=== PATIENT | female | born 1970 | race American Indian/Alaskan Native ===

== ENCOUNTER 2017-02-01 11:59 | Inpatient (IN) | payer MEDICAID ==
--- NOTE | 2017-02-01 12:23 | ED PDOC ---
Arrival/HPI - General Chief Complaint: Chest Pain Time Seen by Provider: 02/01/17 12:02 Historian: Patient - History of Present Illness Narrative History of Present Illness (Text): 02/01/17 12:23 A 46 year old female, whose past medical history includes hypertension, hyperlipidemia and recent cholecystectomy on 01/25/17, presents to the emergency department complaining of left sided chest pain for 2 days. Patient describes the pain as a persistent sharp sensation as radiating toward the posterior L shoulder and upper back and is worse on exertion. Patient notes mild shortness of breath but denies any fever, chills, nausea, vomiting, abdominal pain, lower extremity swelling/pain or any other complaints. Time/Duration: Other (2 days) Symptom Course: Unchanged Quality: Other Context: Home Past Medical History - Provider Review Nursing Documentation Reviewed: Yes - Infectious Disease Hx of Infectious Diseases: None - Cardiac Hx Cardiac Disorders: Yes Hx Hypertension: Yes - Pulmonary Hx Respiratory Disorders: No - Neurological Hx Neurological Disorder: No - HEENT Hx HEENT Disorder: No - Renal Hx Renal Disorder: No - Endocrine/Metabolic Hx Endocrine Disorders: No - Hematological/Oncological Hx Blood Disorders: No - Integumentary Hx Dermatological Disorder: No - Musculoskeletal/Rheumatological Hx Musculoskeletal Disorders: No - Gastrointestinal Hx Gastrointestinal Disorders: No - Genitourinary/Gynecological Hx Genitourinary Disorders: No - Psychiatric Hx Psychophysiologic Disorder: No Hx Substance Use: No - Surgical History Hx Cholecystectomy: Yes Hx Hysterectomy: Yes (partial) - Anesthesia Hx Anesthesia: Yes Hx Anesthesia Reactions: No Family/Social History - Physician Review Nursing Documentation Reviewed: Yes Family/Social History: No Known Family HX Smoking Status: Never Smoked Hx Alcohol Use: No Hx Substance Use: No Allergies/Home Meds Allergies/Adverse Reactions: Allergies No Known Allergies Allergy (Verified 02/01/17 12:02) Home Medications: Home Meds Medication Instructions Recorded Confirmed Atorvastatin [Lipitor] 40 mg PO DAILY 02/01/17 02/01/17 Ibuprofen [Motrin Tab] 600 mg PO PRN PRN 02/01/17 02/01/17 Lisinopril [Zestril] 5 mg PO DAILY 02/01/17 02/01/17 Valsartan/Hydrochlorothiazide 1 tab PO DAILY 02/01/17 02/01/17 [Valsartan-Hctz 320-25 mg Tab] Review of Systems - Physician Review All systems were reviewed & negative as marked: Yes - Review of Systems Constitutional: absent: Fevers, Night Sweats Respiratory: SOB Cardiovascular: Chest Pain. absent: Edema, Calf Pain Gastrointestinal: absent: Abdominal Pain, Nausea, Vomiting Musculoskeletal: Back Pain Physical Exam Vital Signs Reviewed: Yes Vital Signs Temp Pulse Pulse Resp BP BP Pulse Ox 02/01/17 15:00 66 20 157/101 H 100 02/01/17 14:00 60 18 125/91 H 96 02/01/17 12:09 98.1 F 73 20 165/82 H 100 02/01/17 12:05 75 165/82 H Temperature: Afebrile Blood Pressure: Hypertensive Pulse: Regular Respiratory Rate: Normal Appearance: Positive for: Non-Toxic Pain Distress: None Mental Status: Positive for: Alert and Oriented X 3 - Systems Exam Head: Present: Atraumatic, Normocephalic Pupils: Present: PERRL Conjunctiva: Present: Normal Mouth: Present: Moist Mucous Membranes Pharnyx: Present: Normal. No: ERYTHEMA, EXUDATE Neck: Present: Normal Range of Motion Respiratory/Chest: Present: Clear to Auscultation, Good Air Exchange. No: Respiratory Distress, Accessory Muscle Use Cardiovascular: Present: Regular Rate and Rhythm, Normal S1, S2. No: Murmurs Abdomen: Present: Normal Bowel Sounds. No: Tenderness, Distention, Peritoneal Signs Back: Present: Normal Inspection Upper Extremity: Present: Normal Inspection. No: Cyanosis, Edema Lower Extremity: Present: Normal Inspection. No: Edema Neurological: Present: GCS=15, CN II-XII Intact, Speech Normal Skin: Present: Warm, Dry, Normal Color. No: Rashes Psychiatric: Present: Alert, Oriented x 3, Normal Insight, Normal Concentration Medical Decision Making ED Course and Treatment: 02/01/17 12:23 Impression: A 46 year old female with left sided chest pain. Differential: ACS vs PE vs muscular pain vs GERD Plan: -- Chest CT -- Chest xray -- EKG -- Labs -- Urinalysis -- Aspirin, Nitroglycerin and IV fluids -- Reassess and disposition Progress Notes: EKG shows NSR at 75 BPM with normal intervals, normal axis, flatten T-waves in V3 and AVF, no other ST/T changes, no prior for comparison. Interpreted by me. 02/01/17 12:54 On re-evaluation, patient reports her chest pain has improved after nitroglycerin. 02/01/17 15:48 Patient with noted history with chest pain. EKG with nonspecific findings. Labs are nondiagnostic. The patient's pain improved with nitro, twice; bp is lowered for a few minutes after nitro but keeps rising. Given hydralazine. CTA done showing no dissection/PE. Patient with risk factors of HTN and HLD - will need further evaluation and treatment and will be observed on tele - discussed with hospitalist, Dr. May. - Lab Interpretations Lab Results: 02/01/17 12:15 02/01/17 12:15 Lab Results 02/01/17 13:20: Urine Color Yellow, Urine Appearance Clear, Urine pH 6.0, Ur Specific Grady 1.020, Urine Protein Negative, Urine Glucose (UA) Negative, Urine Ketones Negative, Urine Blood Negative, Urine Nitrate Negative, Urine Bilirubin Negative, Urine Urobilinogen 0.2, Ur Leukocyte Esterase Trace H, Urine RBC 0 - 2, Urine WBC 1 - 3, Ur Epithelial Cells 4 - 5, Urine Bacteria Few 02/01/17 12:15: PT 12.8 H, INR 1.16 H, APTT 30.2 02/01/17 12:15: Sodium 142, Potassium 3.8, Chloride 105, Carbon Dioxide 25, Anion Gap 16, BUN 12, Creatinine 0.9, Est GFR ( Amer) > 60, Est GFR (Non- Af Amer) > 60, Random Glucose 82, Calcium 9.7, Magnesium 2.0, Total Bilirubin 0.9, Direct Bilirubin 0.5 H, AST 33, ALT 30, Alkaline Phosphatase 56, Lactate Dehydrogenase 475, Total Creatine Kinase 223, Troponin I < 0.01, NT-Pro-B Natriuret Pep 283, Total Protein 8.2, Albumin 4.8, Globulin 3.5, Albumin/ Globulin Ratio 1.4, Lipase 39 02/01/17 12:15: WBC 6.5, RBC 3.89, Hgb 12.3, Hct 35.8 L, MCV 92.0, MCH 31.6, MCHC 34.4, RDW 12.9, Plt Count 394, MPV 9.1, Gran % 56.8, Lymph % (Auto) 33.8, [place] % (Auto) 7.4 H, Eos % (Auto) 1.5, Baso % (Auto) 0.5, Gran # 3.71, Lymph # 2.2, [place] # 0.5, Eos # 0.1, Baso # 0.03 I have reviewed the lab results: Yes - RAD Interpretation Radiology Orders: 02/01/17 12:23 CHEST PORTABLE [RAD] Stat 02/01/17 12:25 ANGIOGRAPHY DISECTION PROTOCOL [CT] Stat - Medication Orders Current Medication Orders: Discontinued Medications Acetaminophen (Tylenol 325mg Tab) 975 mg PO STAT STA Stop: 02/01/17 12:55 Last Admin: 02/01/17 13:09 Dose: Not Given Non-Admin Reason: Patient Refused Aspirin (Aspirin Chewable) 324 mg PO STAT STA Stop: 02/01/17 12:27 Last Admin: 02/01/17 12:36 Dose: 324 mg Hydralazine HCl (Apresoline) 10 mg IVP STAT STA Stop: 02/01/17 15:31 Last Admin: 02/01/17 15:38 Dose: 10 mg IVP Administration Document 02/01/17 15:38 CNR (Rec: 02/01/17 15:38 CNR [id number] Charges for Administration # of IVP Administrations 1 Sodium Chloride (Sodium Chloride 0.9%) 1,000 mls @ 999 mls/hr IV .Q1H1M STA Stop: 02/01/17 13:26 Last Admin: 02/01/17 12:37 Dose: 999 mls/hr eMAR Start Stop Document 02/01/17 12:37 CNR (Rec: 02/01/17 12:38 CNR [id number] Intravenous Solution Start Date 02/01/17 Start Time 12:38 Ketorolac Tromethamine (Toradol) 30 mg IVP STAT STA Stop: 02/01/17 15:15 Last Admin: 02/01/17 15:19 Dose: 30 mg MAR Pain Assessment Document 02/01/17 15:19 CNR (Rec: 02/01/17 15:20 CNR [id number][facility] Pain Reassessment Is this a pain reassessment? Yes IVP Administration Document 02/01/17 15:19 CNR (Rec: 02/01/17 15:20 [facility]NR [id number] Charges for Administration # of IVP Administrations 1 Nitroglycerin (Nitrostat Sl Tab) 0.4 mg SL STAT STA Stop: 02/01/17 12:27 Last Admin: 02/01/17 12:37 Dose: 0.4 mg Nitroglycerin (Nitrostat Sl Tab) 0.4 mg SL STAT STA Stop: 02/01/17 15:14 Last Admin: 02/01/17 15:20 Dose: 0.4 mg - Scribe Statement The provider has reviewed the documentation as recorded by the Jayna James Provider Scribe Attestation: All medical record entries made by the Scribe were at my direction and personally dictated by me. I have reviewed the chart and agree that the record accurately reflects my personal performance of the history, physical exam, medical decision making, and the department course for this patient. I have also personally directed, reviewed, and agree with the discharge instructions and disposition. Disposition/Present on Arrival - Present on Arrival Any Indicators Present on Arrival: No History of DVT/PE: No History of Uncontrolled Diabetes: No Urinary Catheter: No History of Decub. Ulcer: No History Surgical Site Infection Following: None - Disposition Have Diagnosis and Disposition been Completed?: Yes Diagnosis: Chest pain Disposition: HOSPITALIZED Disposition Time: 15:30 Patient Plan: Observation, Telemetry Condition: FAIR Discharge Instructions (ExitCare): Chest Pain (ED) Forms: [employer] (Serbian)
[2017-02-01] MEDS ORDERED: Sodium Chloride 0.9% 1,000 ML IV STA (12:26)
[2017-02-01 12:48] LABS: BASO # 0.03 K/mm3 (0.0-2.0); BASO % 0.5 % (0.0-3.0); EOS # 0.1 (0.0-0.7); EOS % 1.5 % (1.5-5.0); GRAN # 3.71 (1.4-6.5); GRAN % 56.8 % (50.0-68.0); HEMATOCRIT 35.8 % (36.0-48.0); LYMPH # 2.2 (1.2-3.4); LYMPH % 33.8 % (22.0-35.0); MEAN CORPUSCULAR HEMOGLOBIN 31.6 pg (25.0-35.0); MEAN CORPUSCULAR HGB CONC 34.4 g/dl (31.0-37.0); MEAN PLATELET VOLUME 9.1 fl (7.0-11.0); MONO # 0.5 (0.1-0.6); MONO % 7.4 % (1.0-6.0); RED CELL DISTRIBUTION WIDTH 12.9 % (11.5-14.5); WHITE BLOOD COUNT 6.5 10^3/ul (4.5-11.0)
[2017-02-01 12:58] LABS: ALB/GLOB RATIO 1.4 (1.1-1.8); ALKALINE PHOSPHATASE 56 U/L (38-126); ALT/SGPT 30 U/L (7-56); AST/SGOT 33 U/L (14-36); BILIRUBIN,DIRECT 0.5 mg/dL (0.0-0.4); BILIRUBIN,TOTAL 0.9 mg/dL (0.2-1.3); BLOOD UREA NITROGEN 12 mg/dL (7-21); CALCIUM 9.7 mg/dL (8.4-10.5); CARBON DIOXIDE 25 mmol/L (21-33); CHLORIDE 105 mmol/L (98-107); GFR AFRICAN-AMERICAN > 60; GLUCOSE,RANDOM 82 mg/dL (70-110); LIPASE 39 U/L (23-300); POTASSIUM 3.8 mmol/L (3.6-5.0); SODIUM 142 mmol/L (132-148); TOTAL PROTEIN 8.2 g/dL (5.8-8.3)
[2017-02-01 13:04] LABS: INR 1.16 (0.93-1.08); PARTIAL THROMBOPLASTIN TIME 30.2 Seconds (25.1-36.5)
[2017-02-01 13:15] LABS: TROPONIN I < 0.01 ng/mL
[2017-02-01 13:33] LABS: URINE BILIRUBIN NEGATIVE (NEGATIVE); URINE BLOOD NEGATIVE (NEGATIVE); URINE GLUCOSE (UA) NEGATIVE (NEGATIVE); URINE KETONE NEGATIVE (NEGATIVE); URINE LEUKOCYTE ESTERASE TRACE Leu/uL (NEGATIVE); URINE PROTEIN NEGATIVE mg/dL (<30 mg/dL); URINE UROBILINOGEN 0.2 E.U./dL (<1 E.U./dL)
[2017-02-01 13:35] LABS: URINE APPEARANCE CLEAR (CLEAR); URINE COLOR YELLOW (YELLOW)
[2017-02-01 13:58] LABS: URINE BACTERIA FEW (NEG); URINE RBC 0 - 2 /hpf (0-2)
--- NOTE | 2017-02-01 15:16 | CT ---
PROCEDURE: CT Angiography Chest, Abdomen and Pelvis with and without intravenous contrast HISTORY: cp radiating to the shoulder - r.o dissection COMPARISON: None. TECHNIQUE: Contiguous axial images of the chest, abdomen and pelvis were obtained in the phase of aortic enhancement. A noncontrast enhanced CT of the chest was also obtained to evaluate for possible intramural thrombus. Coronal and sagittal reformats were generated. IV dose administered: 150 cc of Omni 350 Radiation dose: Total exam DLP = 1298 mGy-cm. This CT exam was performed using one or more of the following dose reduction techniques: Automated exposure control, adjustment of the mA and/or kV according to patient size, and/or use of iterative reconstruction technique. FINDINGS: CT ANGIOGRAPHY OF THE CHEST WITH & WITHOUT CONTRAST: AORTA (CHEST AND ABDOMEN): The thoracic and abdominal aorta are unremarkable, without aneurysm, dissection or rupture. No intramural thrombus identified in the thoracic aorta on the non-contrast ct of the chest. The celiac axis, superior mesenteric artery, inferior mesenteric artery and the renal arteries are widely patent. The pelvic arteries are unremarkable. LUNGS: Clear. No nodule, mass or consolidation. MEDIASTINUM: Unremarkable. Normal caliber aorta and pulmonary arterial trunk. No aortic dissection. Normal size heart. LYMPH NODES: Unremarkable. PLEURA: Unremarkable. No pneumothorax. No pleural fluid. BONES: Unremarkable. OTHER FINDINGS: None. CT ANGIOGRAPHY OF THE ABDOMEN AND PELVIS WITH CONTRAST: LIVER: Unremarkable. No gross lesion or ductal dilatation. GALLBLADDER AND BILE DUCTS: Unremarkable. PANCREAS: Unremarkable. No gross lesion or ductal dilatation. SPLEEN: Unremarkable. ADRENALS: Unremarkable. No mass. KIDNEYS AND URETERS: Unremarkable. No hydronephrosis. No solid mass. VASCULATURE: Unremarkable. No aortic aneurysm. STOMACH AND BOWEL: Unremarkable. No obstruction. No gross mural thickening. APPENDIX: Normal appendix. PERITONEUM: Unremarkable. No free fluid. No free air. LYMPH NODES: Unremarkable. No enlarged lymph nodes. BLADDER: Unremarkable. REPRODUCTIVE: Unremarkable. BONES: No acute fracture. OTHER FINDINGS: None. IMPRESSION: Negative study. No evidence of dissection
--- NOTE | 2017-02-01 15:23 | RAD ---
HISTORY: cp COMPARISON: No prior. FINDINGS: LUNGS: No active pulmonary disease. PLEURA: No significant pleural effusion identified, no pneumothorax apparent. CARDIOVASCULAR: Normal. OSSEOUS STRUCTURES: No significant abnormalities. VISUALIZED UPPER ABDOMEN: Normal. OTHER FINDINGS: None. IMPRESSION: No active disease.
--- NOTE | 2017-02-01 16:43 | CARD ---
APPROVED REPORT EKG Measurement Heart [id number] [id number] <Conclusion> Normal sinus rhythm NSSTW changes
--- NOTE | 2017-02-01 17:57 | CP.PCM.HP ---
<Sylvester Bashir - Last Filed: 02/01/17 21:48> History of Present Illness - History of Present Illness History of Present Illness: Patient is a 46 year old female with a past medical history of hypertension, migraines, and hyperlipidemia presenting to [facility] ED on 02/01/17 with complaints of headache and chest pain. Patient states headache which is associated with a change of vision ( floaters), began three days ago and radiated down her left arm. She states her chest pain began 01/31 and initially was localized to her left chest, but with time began radiating down her left arm. Patient cannot differentiate whether the pain radiating down the arm was due to headache alone or chest pain as well. She states while shopping today the chest pain became intolerable which prompted her to bring herself to the ED. on 01/25 patient had cholecystectomy at [facility]. States she went in because she was having stomach pains and not moving her bowels a week prior. Upon being admitted to [facility] ED she was found to need emergent cholecystectomy. Patient states since being discharged from [facility] she has had non bloody diarrhea and bilateral lower quadrant abdominal pain which radiated to her back bilaterally. She also admits to productive cough and nasal congestion since discharge from [facility]. Patient decided on Monday to see her PMD due to her headache, at office, her BP was found to be 170/110, she was given toprol XL 50 mg and sent home when BP improved. Patient was initially on lisinopril but due to coughing, was prescribed Losartan/HCTZ and Toprol XL 50 mg. Patient admits to chest pain, diarrhea, headache, abdominal pain, cough, nasal congestion. Denies nausea, vomiting, dysuria, shortness of breath. PMD: Dr. Saini Surgical History: Cholecystectomy 01/25/17, Partial hysterectomy 2013 Family history: HTN, uncontrolled refractory to medication in mother and sister Allergies: NKDA Social History: quit smoking for 1 month, previously smoked half a pack for 32 years, denies alcohol, admits to marijuana use Present on Admission - Present on Admission Any Indicators Present on Admission: Yes Review of Systems - Constitutional Constitutional: Anorexia, Headache. absent: Chills - EENT Eyes: Change in Vision, Floaters Ears: absent: Ear Pain, Tinnitus Nose/Mouth/Throat: Nasal Congestion - Cardiovascular Cardiovascular: Chest Pain, Pain Radiating to Arm/Neck/Jaw (radiates to arm and neck). absent: Diaphoresis, Dyspnea - Respiratory Respiratory: Cough, Excessive Mucous Production - Gastrointestinal Gastrointestinal: Abdominal Pain, Diarrhea - Neurological Neurological: Dizziness. absent: Confusion, Syncope Past Patient History - Infectious Disease Hx of Infectious Diseases: None - Past Social History Smoking Status: Never Smoked - CARDIAC Hx Cardiac Disorders: Yes Hx Hypertension: Yes - PULMONARY Hx Respiratory Disorders: No - NEUROLOGICAL Hx Neurological Disorder: No - HEENT Hx HEENT Problems: No - RENAL Hx Chronic Kidney Disease: No - ENDOCRINE/METABOLIC Hx Endocrine Disorders: No - HEMATOLOGICAL/ONCOLOGICAL Hx Blood Disorders: No - INTEGUMENTARY Hx Dermatological Problems: No - MUSCULOSKELETAL/RHEUMATOLOGICAL Hx Musculoskeletal Disorders: No - GASTROINTESTINAL Hx Gastrointestinal Disorders: No - GENITOURINARY/GYNECOLOGICAL Hx Genitourinary Disorders: No - PSYCHIATRIC Hx Psychophysiologic Disorder: No Hx Substance Use: No - SURGICAL HISTORY Hx Cholecystectomy: Yes Hx Hysterectomy: Yes (partial) - ANESTHESIA Hx Anesthesia: Yes Hx Anesthesia Reactions: No Meds Allergies/Adverse Reactions: Allergies Allergy/AdvReac Type Severity Reaction Status Date / Time No Known Allergies Allergy Verified 02/01/17 12:02 Physical Exam - Head Exam Head Exam: ATRAUMATIC, NORMAL INSPECTION - Eye Exam Eye Exam: EOMI, Normal appearance - ENT Exam ENT Exam: Mucous Membranes Moist - Respiratory Exam Respiratory Exam: Clear to Auscultation Bilateral, NORMAL BREATHING PATTERN - Cardiovascular Exam Cardiovascular Exam: REGULAR RHYTHM, +S1, +S2 - GI/Abdominal Exam GI & Abdominal Exam: Normal Bowel Sounds, Tenderness - Neurological Exam Neurological exam: Alert, Oriented x3 - Psychiatric Exam Psychiatric exam: Anxious - Skin Skin Exam: Normal Color, Warm Results - Vital Signs Recent Vital Signs: Last Vital Signs Temp 98.1 F 02/01/17 12:09 Pulse 66 02/01/17 15:00 Resp 20 02/01/17 15:00 BP 157/101 H 02/01/17 15:00 Pulse Ox 100 02/01/17 15:00 - Labs Result Diagrams: 02/01/17 12:15 02/01/17 12:15 Assessment & Plan - Assessment and Plan (Free Text) Assessment: 46 year old female past medical history uncontrolled hypertension, migraines, hyperlipidemia presenting to [facility] ED on 02/01/17 with complaints of headache associated with vision changes, chest pain, diarrhea, productive cough, nasal congestion. Plan: 1. ICH vs. Hypertension Headache vs. Influenza - CT head; results pending - Neurology consult pending CT head results - BP upon physical exam 167/90 - home blood pressure medications restarted - Hydralazine for PRN BP control - If BP remains uncontrolled, consider Nephrology consult and Renal dopplers - Tramadol for headache - Rapid Flu test 2. Chest Pain r/o ACS - CT Chest; no acute findings - Trop x1 negative, continuing to trend trops - EKG no acute abnormalities, serial EKGs - Environmental Services Worker - Cardiology consult, possible outpatient stress test needed. Patient states her previous stress test showed some occlusion, can't recall percent occluded. - Aspirin - Lipid panel ordered, resume lipitor - 3. Abdominal pain - CT abdomen/pelvis; no acute findings - Tramadol for pain control 4. Hypertension - BP upon physical exam 167/90 - home blood pressure medications restarted - Hydralazine for PRN BP control - If BP remains uncontrolled, consider Nephrology consult and Renal dopplers 5. Hyperlipidemia - Lipid panel ordered, resume lipitor <Alberto Peters B - Last Filed: 02/02/17 17:12> Results - Vital Signs Recent Vital Signs: Last Vital Signs Temp 98.4 F 02/02/17 04:00 Pulse 57 L 02/02/17 14:00 Resp 22 02/02/17 04:00 BP 126/93 H 02/02/17 12:00 Pulse Ox 100 02/02/17 04:00 - Labs Result Diagrams: 02/02/17 04:20 02/02/17 04:20 Attending/Attestation - Attestation I have personally seen and examined this patient.: Yes I have fully participated in the care of the patient.: Yes I have reviewed all pertinent clinical information: Yes Notes (Text): I have seen and examined the patient at bedside. 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 followed by UTI which was treated with PMD came for evaluation of chest pain, headache, abdominal pain and diarrhea. Chest pain was severe enough for her to come to ED. Upon presentation, her BP was noted to be high which came down with nitrates given in ED. She appears very emotional however denies being depressed and denies homicidal or suicidal ideation. Will monitor serial cardiac enzymes, ekg, CT head and will resume antihypertensives. Will closely monitor the patient. Will consult ornamental rail installer. Upon discharge patient will follow up with Dr Saini. Dr Alberto Peters
[2017-02-01 21:03] VITALS: BMI 26.5
[2017-02-01] MEDS ORDERED: Pneumococcal 23-Valent Vaccine IM ONE (21:03)
[2017-02-01] MEDS ORDERED: Influenza Vaccine 60 mcg/0.5 mL SYR (4YR UP) IM ONE (21:03)
[2017-02-01 21:31] LABS: CHOLESTEROL 155 mg/dL (130-200)
[2017-02-01 21:50] LABS: TROPONIN I < 0.01 ng/mL
[2017-02-01] MEDS: Metoprolol Succinate 50 mg XL Tab PO SCH (21:51)
[2017-02-02 04:32] LABS: BASO # 0.03 K/mm3 (0.0-2.0); BASO % 0.7 % (0.0-3.0); EOS # 0.1 (0.0-0.7); EOS % 2.1 % (1.5-5.0); GRAN # 2.23 (1.4-6.5); GRAN % 51.9 % (50.0-68.0); HEMATOCRIT 32.9 % (36.0-48.0); LYMPH # 1.6 (1.2-3.4); LYMPH % 36.7 % (22.0-35.0); MEAN CELL VOLUME 91.1 fl (80.0-105.0); MEAN CORPUSCULAR HEMOGLOBIN 31.6 pg (25.0-35.0); MEAN CORPUSCULAR HGB CONC 34.7 g/dl (31.0-37.0); MEAN PLATELET VOLUME 8.4 fl (7.0-11.0); MONO # 0.4 (0.1-0.6); MONO % 8.6 % (1.0-6.0); WHITE BLOOD COUNT 4.3 10^3/ul (4.5-11.0)
[2017-02-02 04:45] LABS: ALB/GLOB RATIO 1.3 (1.1-1.8); ALKALINE PHOSPHATASE 39 U/L (38-126); ALT/SGPT 27 U/L (7-56); AST/SGOT 24 U/L (14-36); BILIRUBIN,TOTAL 0.7 mg/dL (0.2-1.3); BLOOD UREA NITROGEN 14 mg/dL (7-21); CALCIUM 9.2 mg/dL (8.4-10.5); CARBON DIOXIDE 26 mmol/L (21-33); CHLORIDE 105 mmol/L (98-107); GFR AFRICAN-AMERICAN > 60; GLUCOSE,RANDOM 106 mg/dL (70-110); INR 1.14 (0.93-1.08); MAGNESIUM 1.9 mg/dL (1.7-2.2); PARTIAL THROMBOPLASTIN TIME 29.7 Seconds (25.1-36.5); POTASSIUM 3.8 mmol/L (3.6-5.0); SODIUM 141 mmol/L (132-148)
[2017-02-02 04:57] LABS: TROPONIN I < 0.01 ng/mL
[2017-02-02] MEDS: Metoprolol Succinate 50 mg XL Tab PO SCH (09:29)
--- NOTE | 2017-02-02 09:44 | CT ---
PROCEDURE: CT HEAD WITHOUT CONTRAST. HISTORY: headache COMPARISON: None available. TECHNIQUE: Axial computed tomography images were obtained through the head/brain without intravenous contrast. Radiation dose: Total exam DLP = 678 mGy-cm. This CT exam was performed using one or more of the following dose reduction techniques: Automated exposure control, adjustment of the mA and/or kV according to patient size, and/or use of iterative reconstruction technique. FINDINGS: HEMORRHAGE: No intracranial hemorrhage. BRAIN: No mass effect or edema. No atrophy or chronic microvascular ischemic changes. VENTRICLES: Unremarkable. No hydrocephalus. CALVARIUM: Unremarkable. PARANASAL SINUSES: Unremarkable as visualized. No significant inflammatory changes. MASTOID AIR CELLS: Unremarkable as visualized. No inflammatory changes. OTHER FINDINGS: The report concurs with the preliminary [facility] report IMPRESSION: No acute findings
[2017-02-02] MEDS ORDERED: Non Formulary Medication (Valsartan/Hydrochlorothiazide [Valsartan-Hctz 320-25 Mg Tab] 1 T PO SCH (10:00)
--- NOTE | 2017-02-02 11:02 | CP.PCM.PN ---
<Mitch Rubalcava - Last Filed: 02/02/17 13:29> Subjective - Date & Time of Evaluation Date of Evaluation: 02/02/17 Time of Evaluation: 06:00 - Subjective Subjective: Patient was seen and examined bedside. She stated her BP has been in control since last night and as a result she has not had a headache lying down. She does state she feels the headache when she sits up in bed. She denied any chest pain, and also said her abdominal pain was gone. She denied any shortness of breath, nausea, vomiting, fever, chills or any other complaints. Objective - Vital Signs/Intake and Output Vital Signs (last 24 hours): Temp Pulse Resp BP Pulse Ox 98.4 F 61 22 134/91 H 100 02/02/17 04:00 02/02/17 09:29 02/02/17 04:00 02/02/17 09:29 02/02/17 04:00 Intake and Output: 02/02/17 02/02/17 06:59 18:59 Intake Total 480 Output Total 400 Balance 80 - Medications Medications: Current Medications Aspirin (Ecotrin) 81 mg PO DAILY [facility] Last Admin: 02/02/17 09:29 Dose: 81 mg Atorvastatin Calcium (Lipitor) 40 mg PO DAILY [facility] Last Admin: 02/02/17 09:29 Dose: 40 mg Hydralazine HCl (Apresoline) 10 mg IVP DAILY PRN PRN Reason: Systolic Blood Pressure Hydrochlorothiazide (Hydrodiuril) 25 mg PO DAILY [facility] Last Admin: 02/02/17 09:29 Dose: 25 mg Metoprolol Succinate (Toprol Xl) 50 mg PO DAILY [facility] Last Admin: 02/02/17 09:29 Dose: 50 mg Pantoprazole Sodium (Protonix Inj) 40 mg IVP DAILY [facility] Last Admin: 02/02/17 09:30 Dose: 40 mg Tramadol HCl (Ultram) 50 mg PO TID PRN PRN Reason: Pain, severe (8-10) Last Admin: 02/02/17 09:29 Dose: 50 mg Valsartan (Diovan) 320 mg PO DAILY [facility] Last Admin: 02/02/17 09:29 Dose: 320 mg - Labs Labs: 02/02/17 04:20 02/02/17 04:20 PT 12.5 SECONDS (9.4-12.5) 02/02/17 04:20 INR 1.14 (0.93-1.08) H 02/02/17 04:20 APTT 29.7 Seconds (25.1-36.5) 02/02/17 04:20 - Constitutional Appears: Non-toxic, No Acute Distress - Head Exam Head Exam: ATRAUMATIC, NORMAL INSPECTION, NORMOCEPHALIC - Eye Exam Eye Exam: EOMI, Normal appearance, PERRL Pupil Exam: NORMAL ACCOMODATION, PERRL - ENT Exam ENT Exam: Mucous Membranes Moist, Normal Exam - Neck Exam Neck Exam: Full ROM. absent: Lymphadenopathy, Tenderness - Respiratory Exam Respiratory Exam: Clear to Ausculation Bilateral, NORMAL BREATHING PATTERN - Cardiovascular Exam Cardiovascular Exam: REGULAR RHYTHM, +S1, +S2 - GI/Abdominal Exam GI & Abdominal Exam: Normal Bowel Sounds. absent: Tenderness - Extremities Exam Extremities Exam: Normal Inspection. absent: Pedal Edema - Neurological Exam Neurological Exam: Alert, Awake, Oriented x3 - Psychiatric Exam Psychiatric exam: Anxious - Skin Skin Exam: Normal Color, Warm Assessment and Plan - Assessment and Plan (Free Text) Assessment: 46 year old female past medical history uncontrolled hypertension, migraines, hyperlipidemia presenting to [facility] on 02/01/17 with complaints of headache associated with vision changes, chest pain, diarrhea, productive cough, nasal congestion. She is being worked up for headache and chest pain, ruling out ACS. Plan: 1. Headache secondary to uncontrolled hypertension vs ICH - CT head: no acute findings - BP upon initial physical exam 167/90, Current BP: 118/82 - home blood pressure medications continued - Hydralazine for PRN BP control - If BP remains uncontrolled, consider Nephrology consult and Renal dopplers - Tramadol for headache - Rapid Flu test was negative - TSH: 6.4 , reordered TSH, and follow up Free T4 - Will monitor orthostatics, - Will monitor BP every 2 hours - 1 Tablet Fiorcet given - MRI Brain w and without contrast ordered - Neurology Consulted-Teofilo 2. Chest Pain r/o ACS - CT Chest; no acute findings - Trop x3 - EKG no acute abnormalities, serial EKGs - Restaurant Attendant - Cardiology consult, possible outpatient stress test needed. Patient states her previous stress test showed some occlusion, can't recall percent occluded. - Echo ordered, follow up - Aspirin - Lipid panel: Triglycerides: 176, Cholesterol: 155 LDL: 89 - Continue lipitor 3. Abdominal pain -resolved - CT abdomen/pelvis; no acute findings - Tramadol for pain control 4. Hypertension - BP upon initial physical exam 167/90, Current BP: 118/82 - home blood pressure medications restarted - Hydralazine for PRN BP control - If BP remains uncontrolled, consider Nephrology consult and Renal dopplers 5. Hyperlipidemia -Lipid panel: Triglycerides: 176, Cholesterol: 155 LDL: 89 -on lipitor 6. GI/DVT Prophylaxis -Pantoprazole -compression devices <Alberto Peters - Last Filed: 02/02/17 17:20> Objective - Vital Signs/Intake and Output Vital Signs (last 24 hours): Temp Pulse Resp BP Pulse Ox 98.4 F 57 L 22 126/93 H 100 02/02/17 04:00 02/02/17 14:00 02/02/17 04:00 02/02/17 12:00 02/02/17 04:00 Intake and Output: 02/02/17 02/02/17 06:59 18:59 Intake Total 420 Output Total 500 Balance -80 - Medications Medications: Current Medications Aspirin (Ecotrin) 81 mg PO DAILY [facility] Last Admin: 02/02/17 09:29 Dose: 81 mg Atorvastatin Calcium (Lipitor) 40 mg PO DAILY [facility] Last Admin: 02/02/17 09:29 Dose: 40 mg Hydralazine HCl (Apresoline) 10 mg IVP DAILY PRN PRN Reason: Systolic Blood Pressure Hydrochlorothiazide (Hydrodiuril) 25 mg PO DAILY [facility] Last Admin: 02/02/17 09:29 Dose: 25 mg Metoprolol Succinate (Toprol Xl) 50 mg PO DAILY [facility] Last Admin: 02/02/17 09:29 Dose: 50 mg Pantoprazole Sodium (Protonix Inj) 40 mg IVP DAILY [facility] Last Admin: 02/02/17 09:30 Dose: 40 mg Tramadol HCl (Ultram) 50 mg PO TID PRN PRN Reason: Pain, severe (8-10) Last Admin: 02/02/17 13:17 Dose: 50 mg Valsartan (Diovan) 320 mg PO DAILY [facility] Last Admin: 02/02/17 09:29 Dose: 320 mg - Labs Labs: PT 12.5 SECONDS (9.4-12.5) 02/02/17 04:20 INR 1.14 (0.93-1.08) H 02/02/17 04:20 APTT 29.7 Seconds (25.1-36.5) 02/02/17 04:20 Attending/Attestation - Attestation I have personally seen and examined this patient.: Yes I have fully participated in the care of the patient.: Yes I have reviewed all pertinent clinical information, including history, physical exam and plan: Yes Notes (Text): I have seen and examined the patient at bedside. 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 followed by UTI which was treated with PMD came for evaluation of chest pain, headache, abdominal pain and diarrhea. Chest pain and abdominal pain has resolved however she continued to complain of headache. She reports that earlier her headache was better. BP was noted to be within normal range. CE q8 x 3 negative. Echo result pending. Cardiology consult pending. Will start fioricet today and order MRI brain. Will consult Neurologist. Patient appears very emotional and is crying. She is interested in talking to SW. Denies homicidal or suicidal ideation. Upon discharge patient will follow up with Dr Saini. Dr Alberto Peters
[2017-02-02 12:17] LABS: TROPONIN I < 0.01 ng/mL
[2017-02-02 12:19] LABS: FREE T4 0.81 ng/dL (0.78-2.19)
[2017-02-02 12:32] LABS: THYROID STIMULATING HORMONE 4.94 mIU/mL (0.46-4.68)
[2017-02-02] MEDS ORDERED: Apap-Butalbital-Caffeine 325-50-40mg Tab PO ONE ×2 (13:29→18:00)
[2017-02-02] MEDS ORDERED: Gadodiamide 287 MG/ML VIAL (15ML) IV ONE (15:24)
--- NOTE | 2017-02-02 16:03 | MRI ---
PROCEDURE: MRI BRAIN WITH AND WITHOUT CONTRAST HISTORY: Headache COMPARISON: Head CT 02/01/2017. TECHNIQUE: Multiplanar, multisequence MR images of the brain were obtained with and without intravenous contrast enhancement. FINDINGS: HEMORRHAGE: None DWI: No evidence of an acute or early subacute infarction. BRAIN PARENCHYMA: Examination is positive for a few long TR hyperintensities under 1 cm size identified primarily in bilateral frontal and parietal subcortical white matter but also in the temporooccipital junction regions bilaterally and possibly also in the keren. No definitive corpus a white matter involvement. No abnormal enhancement is seen within the intracranial space throughout. A broad differs diagnosis exists for this pattern as is quite nonspecific and further clinical correlation is advised. While hypertension and headaches can cause this pattern, other etiologies including vasculitis, demyelination or Lyme disease and others are included in the differential diagnosis. No definite cortical signal abnormality is identified. Further clinical correlation is advised. There is no suspicious extra-axial collection identified throughout and there is no mass effect. ENHANCEMENT: No abnormal intracranial enhancement. VENTRICLES: Unremarkable. No hydrocephalus. CRANIUM: Unremarkable. ORBITS: Grossly unremarkable. PARANASAL SINUSES/MASTOIDS: A left mastoid sinus cysts is identified. VASCULAR SYSTEM: Skull base flow voids intact. OTHER FINDINGS: None . IMPRESSION: 1. Mild but abnormal white matter changes are appreciated as discussed above including bilateral subcortical white matter occasionally as well as the the keren most likely. No abnormal intracranial enhancement. Please see differential diagnosis listed above. No abnormal intracranial enhancement. 2. Incidental left maxillary sinus retention cyst.
--- NOTE | 2017-02-02 22:46 | CON ---
CARDIOLOGY CONSULT DATE: REASON FOR CONSULTATION: Chest pain. HISTORY OF PRESENT ILLNESS: The patient is a 46-year-old female, who has history of hypertension and who is a smoker, and who underwent cardiac catheterization here at [facility] via right radial approach and was told she has no blockages and she should be treated for high cholesterol. The patient underwent recently laparoscopic cholecystectomy at [facility] and presented because of headache as well as chest discomfort. The patient does have history of migraine, but she never experienced headache this bad during this time. The patient did report blurry vision and mild dizziness. SOCIAL HISTORY: The patient is a smoker as well as marijuana abuser. MEDICATIONS: Hydralazine 100 mg intravenously p.r.n., Diovan 320 mg once a day, aspirin 81 mg once a day, hydrochlorothiazide 25 mg once a day, Lipitor 40 mg once a day, Protonix 40 mg intravenously once a day, Toprol-XL 50 mg once a day, and Ultram 50 mg p.o. t.i.d. REVIEW OF SYSTEMS: No fever or chills. The patient does report lower abdominal pain and discomfort since her recent laparoscopic cholecystectomy. PHYSICAL EXAMINATION: GENERAL: The patient is a middle-aged female who does not appears to be in any distress. VITAL SIGNS: Blood pressure 134/91, heart rate 61, temperature 98.4, respiration 22. HEENT: Normocephalic. NECK: No JVD. CHEST: Clear. HEART: S1 and S2 regular. ABDOMEN: Mild anterior abdominal wall tenderness. No evidence of cellulitis. EXTREMITIES: No edema or calf tenderness. LABORATORY DATA: Hemoglobin and hematocrit 11.4 and 32.9, white count and platelet count 4.3 and 334,000. Today's SMA-7 is within normal limits. Three sets of troponin were negative. Triglycerides are elevated at 176, rest of lipid profile was within normal limits. TSH level is elevated at 6.7. Urine tox screen is positive for cannabinoids. INR is 1.14 and PTT 29.7. Head CT scan without contrast, no acute findings. CT angio with dissection protocol negative study, no evidence of dissection. EKG elevated sinus rhythm at rate 75. ASSESSMENT: 1. Chest pain, myocardial infarction was ruled out. 2. Severe headache. 3. Status post recent cholecystectomy. RECOMMENDATIONS: Continue aspirin 81 mg once a day, Lipitor 40 mg once a day, hydrochlorothiazide 25 mg once a day, Toprol-XL 50 mg once a day, Diovan 320 mg once a day. I will obtain the cardiac catheterization report performed at [facility]. The patient will undergo an echocardiograph study today. I also requested two sets of blood cultures. Nelson Self MD
[2017-02-02 23:17] VITALS: RESP 20; O2SAT 99
[2017-02-03 06:44] LABS: BASO # 0.04 K/mm3 (0.0-2.0); BASO % 0.9 % (0.0-3.0); EOS # 0.1 (0.0-0.7); EOS % 2.4 % (1.5-5.0); GRAN # 1.9 (1.4-6.5); GRAN % 41.4 % (50.0-68.0); HEMATOCRIT 36.4 % (36.0-48.0); LYMPH # 2.2 (1.2-3.4); LYMPH % 47.5 % (22.0-35.0); MEAN CELL VOLUME 91.9 fl (80.0-105.0); MEAN CORPUSCULAR HEMOGLOBIN 30.8 pg (25.0-35.0); MEAN CORPUSCULAR HGB CONC 33.5 g/dl (31.0-37.0); MEAN PLATELET VOLUME 9.1 fl (7.0-11.0); MONO # 0.4 (0.1-0.6); MONO % 7.8 % (1.0-6.0); WHITE BLOOD COUNT 4.6 10^3/ul (4.5-11.0)
[2017-02-03 07:05] LABS: ALB/GLOB RATIO 1.3 (1.1-1.8); ALKALINE PHOSPHATASE 47 U/L (38-126); ALT/SGPT 25 U/L (7-56); AST/SGOT 24 U/L (14-36); BILIRUBIN,TOTAL 0.6 mg/dL (0.2-1.3); BLOOD UREA NITROGEN 12 mg/dL (7-21); CALCIUM 9.8 mg/dL (8.4-10.5); CARBON DIOXIDE 27 mmol/L (21-33); CHLORIDE 103 mmol/L (98-107); GFR AFRICAN-AMERICAN > 60; GLUCOSE,RANDOM 93 mg/dL (70-110); POTASSIUM 3.8 mmol/L (3.6-5.0); SODIUM 140 mmol/L (132-148); TOTAL PROTEIN 7.9 g/dL (5.8-8.3)
--- NOTE | 2017-02-03 07:58 | CARD ---
APPROVED REPORT EXAM: Two-dimensional and M-mode echocardiogram with Doppler and color Doppler. Other Information Quality : AverageRhythm : INDICATION Chest Pain , HBP 2D DIMENSIONS Left Atrium (2D)3.9 (1.6-4.0cm)IVSd1.2 (0.7-1.1cm) LVDd4.4 (3.9-5.9cm)PWd1.1 (0.7-1.1cm) LVDs2.9 (2.5-4.0cm)FS (%) 34.3 % LVEF (%)63.0 (>50%) M-Mode DIMENSIONS Aortic Root2.70 (2.2-3.7cm)Aortic Cusp Exc.1.40 (1.5-2.0cm) Aortic Valve AoV Peak Dbfiwodp619.0cm/s Mitral Valve MV E Ledzhahe40.2cm/sMV A Xevqqcqf72.5cm/sE/A ratio1.5 TDI E/Lateral E'0.0E/Medial E'0.0 Tricuspid Valve TR Peak Itejvxga282in/sRAP [id number] Peak Gr.17mmHg [id number] LEFT VENTRICLE The left ventricle is normal size. There is normal left ventricular wall thickness. The left ventricular function is normal. The left ventricular ejection fraction is within the normal range. There is normal LV segmental wall motion. RIGHT VENTRICLE The right ventricle is normal size. ATRIA The left atrium size is normal. The right atrium size is normal. The interatrial septum is intact with no evidence for an atrial septal defect. AORTIC VALVE The aortic valve is normal in structure. MITRAL VALVE The mitral valve is normal in structure. Mitral regurgitation is mild. TRICUSPID VALVE The tricuspid valve is normal in structure. There is mild tricuspid regurgitation. PULMONIC VALVE The pulmonic valve is not well visualized. GREAT VESSELS The aortic root is normal in size. PERICARDIAL EFFUSION There is no pericardial effusion. <Conclusion> The left ventricle is normal size. There is normal left ventricular wall thickness. The left ventricular function is normal. Mitral regurgitation is mild. There is mild tricuspid regurgitation.
[2017-02-03] MEDS: Metoprolol Succinate 50 mg XL Tab PO SCH (10:12)
--- NOTE | 2017-02-03 11:36 | CP.PCM.CON ---
History of Present Illness - History of Present Illness History of Present Illness: Neurology consult note for Dr. Red's service - Radha Arriola PGY2 Reason for consult: headache HPI: Patient is a 46 year-old female with past medical history of hypertension, migraines and hyperlipidemia that [place] [facility] [place] pain and headache. She reported that her headache was associated with floaters. She also reported that she while shopping the day prior she began to experience left-sided chest pain associated with radiation down her left arm. She additionally reported that she had seen her PMD, Dr. Saini on Monday due to recurrent headaches and was noted to have a blood pressure of 170/110 for which she was prescribed toprol XL 50mg. Patient denied focal weakness, numbness, tingling, nausea, vomiting. 12point ROS as per HPI otherwise negative. PMH: as stated above PSH: Cholecystectomy 01/25/17, Partial hysterectomy 2013 Allergies: NKDA Family history: HTN, uncontrolled refractory to medication in mother and sister Social History: quit smoking for 1 month, previously smoked half a pack for 32 years, denies alcohol, admits to marijuana use PMD: Dr. Saini Past Patient History - Infectious Disease Hx of Infectious Diseases: None - Past Social History Smoking Status: Never Smoked - CARDIAC Hx Cardiac Disorders: Yes Hx Hypertension: Yes - PULMONARY Hx Respiratory Disorders: No - NEUROLOGICAL Hx Neurological Disorder: No - HEENT Hx HEENT Problems: No - RENAL Hx Chronic Kidney Disease: No - ENDOCRINE/METABOLIC Hx Endocrine Disorders: No - HEMATOLOGICAL/ONCOLOGICAL Hx Blood Disorders: No - INTEGUMENTARY Hx Dermatological Problems: No - MUSCULOSKELETAL/RHEUMATOLOGICAL Hx Musculoskeletal Disorders: No - GASTROINTESTINAL Hx Gastrointestinal Disorders: No - GENITOURINARY/GYNECOLOGICAL Hx Genitourinary Disorders: No - PSYCHIATRIC Hx Psychophysiologic Disorder: No Hx Substance Use: No - SURGICAL HISTORY Hx Cholecystectomy: Yes Hx Hysterectomy: Yes (partial) - ANESTHESIA Hx Anesthesia: Yes Hx Anesthesia Reactions: No Meds Allergies/Adverse Reactions: Allergies Allergy/AdvReac Type Severity Reaction Status Date / Time No Known Allergies Allergy Verified 02/01/17 12:02 - Medications Medications: Current Medications Aspirin (Ecotrin) 81 mg PO DAILY [facility] Last Admin: 02/03/17 10:12 Dose: 81 mg Atorvastatin Calcium (Lipitor) 40 mg PO DAILY [facility] Last Admin: 02/03/17 10:12 Dose: 40 mg Hydralazine HCl (Apresoline) 10 mg IVP DAILY PRN PRN Reason: Systolic Blood Pressure Last Admin: 02/02/17 21:31 Dose: 10 mg Hydrochlorothiazide (Hydrodiuril) 25 mg PO DAILY [facility] Last Admin: 02/03/17 10:12 Dose: 25 mg Metoprolol Succinate (Toprol Xl) 50 mg PO DAILY [facility] Last Admin: 02/03/17 10:12 Dose: 50 mg Pantoprazole Sodium (Protonix Inj) 40 mg IVP DAILY [facility] Last Admin: 02/03/17 10:13 Dose: 40 mg Tramadol HCl (Ultram) 50 mg PO TID PRN PRN Reason: Pain, severe (8-10) Last Admin: 02/03/17 02:34 Dose: 50 mg Valsartan (Diovan) 320 mg PO DAILY [facility] Last Admin: 02/03/17 10:12 Dose: 320 mg Physical Exam - Constitutional Appears: No Acute Distress - Head Exam Head Exam: ATRAUMATIC, NORMAL INSPECTION, NORMOCEPHALIC - Eye Exam Eye Exam: EOMI Pupil Exam: PERRL - ENT Exam ENT Exam: Mucous Membranes Moist - Neck Exam Neck exam: Positive for: Normal Inspection - Respiratory Exam Respiratory Exam: Clear to Auscultation Bilateral. absent: Rales, Rhonchi, Wheezes - Cardiovascular Exam Cardiovascular Exam: +S1, +S2. absent: Gallop, Rubs - GI/Abdominal Exam GI & Abdominal Exam: Soft. absent: Distended, Firm, Guarding, Tenderness - Extremities Exam Extremities exam: Positive for: normal inspection - Neurological Exam Neurological exam: Alert, CN II-XII Intact, Oriented x3 Additional comments: Alert, oriented x3 EOMI PERRL CN2-12 grossly intact Motor function grossly intact no pronator drift babinski downward going bilaterally - Psychiatric Exam Psychiatric exam: Normal Affect, Normal Mood - Skin Skin Exam: Dry, Intact, Normal Color, Warm Results - Vital Signs Recent Vital Signs: Last Vital Signs Temp 97.5 F L 02/03/17 05:55 Pulse 70 02/03/17 10:12 Resp 20 02/03/17 05:55 BP 107/68 02/03/17 10:12 Pulse Ox 99 02/03/17 05:55 - Labs Result Diagrams: 02/03/17 05:10 02/03/17 05:10 Labs: Laboratory Results - last 24 hr 02/03/17 02/03/17 05:10 05:10 WBC 4.6 RBC 3.96 Hgb 12.2 Hct 36.4 MCV 91.9 MCH 30.8 MCHC 33.5 RDW 13.0 Plt Count 399 MPV 9.1 Gran % 41.4 L Lymph % (Auto) 47.5 H Graves % (Auto) 7.8 H Eos % (Auto) 2.4 Baso % (Auto) 0.9 Gran # 1.90 Lymph # 2.2 Graves # 0.4 Eos # 0.1 Baso # 0.04 Sodium 140 Potassium 3.8 Chloride 103 Carbon Dioxide 27 Anion Gap 14 BUN 12 Creatinine 0.9 Est GFR ( Amer) > 60 Est GFR (Non-Af Amer) > 60 Random Glucose 93 Calcium 9.8 Total Bilirubin 0.6 AST 24 ALT 25 Alkaline Phosphatase 47 Total Protein 7.9 Albumin 4.4 Globulin 3.4 Albumin/Globulin Ratio 1.3 Assessment & Plan - Assessment and Plan (Free Text) Plan: 46 year-old female with history of hypertension, migraines and hyperlipidemia [place] [facility] [place]/o chest pain and recurrent headaches 1. Migraine 2. Chest pain r/o ACS 3. Hypertension 4. Hyperlipidemia -Brain MRI reviewed; revealed mild but abnormal white matter changes including bilateral subcortical white matter occasionally as well as the keren most likely ; please refer to full report -Brain MRI results reviewed with Dr. Maria; nonspecific white matter changes that may be seen in those with a history of migraines -Headache presently completely resolved; She may be given fioricet PRN for any recurrence -Head CT reviewed; no acute intracranial abnormalities -EKG reviewed; revealed NSR at 75bpm with no acute ST-T wave changes -CXR reviewed; revealed no active disease -CTA reviewed; negative study, see full report -Continue present medical management as per primary team -Further recommendations as per attending, Dr. Red Patient seen and case discussed/reviewed with attending, Dr. Red - Date & Time Date: 02/03/17 Time: 11:36
[2017-02-03 12:33] VITALS: BP 99/48; TEMP 97.9
--- NOTE | 2017-02-03 14:11 | CP.PCM.DIS ---
<Mitch Rubalcava - Last Filed: 02/03/17 14:14> Provider - Provider Date of Admission: 02/02/17 13:31 Attending physician: Alberto Peters MD Consults: Neurology: Dr. Red Time Spent in preparation of Discharge (in minutes): 70 Hospital Course - Lab Results Lab Results: Most Recent Lab Values WBC 4.6 10^3/ul (4.5-11.0) 02/03/17 05:10 RBC 3.96 10^6/uL (3.5-6.1) 02/03/17 05:10 Hgb 12.2 g/dL (12.0-16.0) 02/03/17 05:10 Hct 36.4 % (36.0-48.0) 02/03/17 05:10 MCV 91.9 fl (80.0-105.0) 02/03/17 05:10 MCH 30.8 pg (25.0-35.0) 02/03/17 05:10 MCHC 33.5 g/dl (31.0-37.0) 02/03/17 05:10 RDW 13.0 % (11.5-14.5) 02/03/17 05:10 Plt Count 399 10^3/uL (120.0-450.0) 02/03/17 05:10 MPV 9.1 fl (7.0-11.0) 02/03/17 05:10 Gran % 41.4 % (50.0-68.0) L 02/03/17 05:10 Lymph % (Auto) 47.5 % (22.0-35.0) H 02/03/17 05:10 [place] % (Auto) 7.8 % (1.0-6.0) H 02/03/17 05:10 Eos % (Auto) 2.4 % (1.5-5.0) 02/03/17 05:10 Baso % (Auto) 0.9 % (0.0-3.0) 02/03/17 05:10 Gran # 1.90 (1.4-6.5) 02/03/17 05:10 Lymph # 2.2 (1.2-3.4) 02/03/17 05:10 [place] # 0.4 (0.1-0.6) 02/03/17 05:10 Eos # 0.1 (0.0-0.7) 02/03/17 05:10 Baso # 0.04 K/mm3 (0.0-2.0) 02/03/17 05:10 PT 12.5 SECONDS (9.4-12.5) 02/02/17 04:20 INR 1.14 (0.93-1.08) H 02/02/17 04:20 APTT 29.7 Seconds (25.1-36.5) 02/02/17 04:20 Sodium 140 mmol/L (132-148) 02/03/17 05:10 Potassium 3.8 mmol/L (3.6-5.0) 02/03/17 05:10 Chloride 103 mmol/L (98-107) 02/03/17 05:10 Carbon Dioxide 27 mmol/L (21-33) 02/03/17 05:10 Anion Gap 14 (10-20) 02/03/17 05:10 BUN 12 mg/dL (7-21) 02/03/17 05:10 Creatinine 0.9 mg/dL (0.7-1.2) 02/03/17 05:10 Est GFR ( Amer) > 60 02/03/17 05:10 Est GFR (Non-Af Amer) > 60 02/03/17 05:10 Random Glucose 93 mg/dL (70-110) 02/03/17 05:10 Calcium 9.8 mg/dL (8.4-10.5) 02/03/17 05:10 Magnesium 1.9 mg/dL (1.7-2.2) 02/02/17 04:20 Total Bilirubin 0.6 mg/dL (0.2-1.3) 02/03/17 05:10 Direct Bilirubin 0.5 mg/dL (0.0-0.4) H 02/01/17 12:15 AST 24 U/L (14-36) 02/03/17 05:10 ALT 25 U/L (7-56) 02/03/17 05:10 Alkaline Phosphatase 47 U/L (38-126) 02/03/17 05:10 Lactate Dehydrogenase 313 U/L (333-699) L 02/02/17 11:45 Total Creatine Kinase 70 U/L (35-230) 02/02/17 11:45 Troponin I < 0.01 ng/mL 02/02/17 11:45 NT-Pro-B Natriuret Pep 283 pg/mL (0-450) 02/01/17 12:15 Total Protein 7.9 g/dL (5.8-8.3) 02/03/17 05:10 Albumin 4.4 g/dL (3.0-4.8) 02/03/17 05:10 Globulin 3.4 gm/dL 02/03/17 05:10 Albumin/Globulin Ratio 1.3 (1.1-1.8) 02/03/17 05:10 Triglycerides 176 mg/dL (35-160) H 02/01/17 21:00 Cholesterol 155 mg/dL (130-200) 02/01/17 21:00 LDL Cholesterol Direct 89 mg/dL (0-129) 02/01/17 21:00 HDL Cholesterol 37 mg/dL (29-60) 02/01/17 21:00 Lipase 39 U/L (23-300) 02/01/17 12:15 Free T4 0.81 ng/dL (0.78-2.19) 02/02/17 11:45 TSH 3rd Generation 4.94 mIU/mL (0.46-4.68) H 02/02/17 11:45 Urine Color Yellow (YELLOW) 02/01/17 13:20 Urine Appearance Clear (CLEAR) 02/01/17 13:20 Urine pH 6.0 (4.7-8.0) 02/01/17 13:20 Ur Specific [place] 1.020 (1.005-1.035) 02/01/17 13:20 Urine Protein Negative mg/dL (<30 mg/dL) 02/01/17 13:20 Urine Glucose (UA) Negative mg/dL (NEGATIVE) 02/01/17 13:20 Urine Ketones Negative mg/dL (NEGATIVE) 02/01/17 13:20 Urine Blood Negative (NEGATIVE) 02/01/17 13:20 Urine Nitrate Negative (NEGATIVE) 02/01/17 13:20 Urine Bilirubin Negative (NEGATIVE) 02/01/17 13:20 Urine Urobilinogen 0.2 E.U./dL (<1 E.U./dL) 02/01/17 13:20 Ur Leukocyte Esterase Trace [place]/uL (NEGATIVE) H 02/01/17 13:20 Urine RBC 0 - 2 /hpf (0-2) 02/01/17 13:20 Urine WBC 1 - 3 /hpf (0-6) 02/01/17 13:20 Ur Epithelial Cells 4 - 5 /hpf (0-5) 02/01/17 13:20 Urine Bacteria Few (NEG) 02/01/17 13:20 Urine Opiates Screen Negative (NEGATIVE) 02/02/17 02:00 Urine Methadone Screen Negative (NEGATIVE) 02/02/17 02:00 Ur Barbiturates Screen Negative (NEGATIVE) 02/02/17 02:00 Ur Phencyclidine Scrn Negative (NEGATIVE) 02/02/17 02:00 Ur Amphetamines Screen Negative (NEGATIVE) 02/02/17 02:00 U Benzodiazepines Scrn Negative (NEGATIVE) 02/02/17 02:00 U Oth Cocaine Metabols Negative (NEGATIVE) 02/02/17 02:00 U Cannabinoids Screen Positive (NEGATIVE) H 02/02/17 02:00 Influenza Typ A,B (EIA) Negative for flu a/b (NEGATIVE) 02/01/17 18:43 - Hospital Course Hospital Course: 46 year old female past medical history uncontrolled hypertension, migraines, hyperlipidemia presenting to [facility] [place] [facility] ED on 02/01/17 with complaints of headache associated with vision changes, chest pain, diarrhea, productive cough, nasal congestion. She is being worked up for headache and chest pain, ruling out ACS. CT head was done, echocardiogram was done and an MRI was obtained. CT head no acute findings, EKG was normal, Brain MRI showed changes normally associated with migraines and HTN. Echo was also unremarkable. Tramadol was given for headache. For ruling out ACS, serial troponins were done and negative times 3. Cardiology was consulted. TSH and Free T4 were ordered and obtained. Neurology was consulted and she was cleared. BP was monitored, orthostatics were done. Her blood pressure mediations were reviewed and reconciled. Norvasc 5mg was added to her medications and given presciption for it. Lipid panel was ordered and reviewed. CT abdomen and pelvis was done for abdominal pain, pain mediction was given as needed. Patient was advised to monitor her BP and follow up with her primary care physician. Discharge Exam - Head Exam Head Exam: ATRAUMATIC, NORMAL INSPECTION, NORMOCEPHALIC - Eye Exam Eye Exam: EOMI, Normal appearance, PERRL Pupil Exam: NORMAL ACCOMODATION - ENT Exam ENT Exam: Mucous Membranes Moist, Normal Exam - Respiratory Exam Respiratory Exam: Clear to PA & Lateral, NORMAL BREATHING PATTERN - Cardiovascular Exam Cardiovascular Exam: REGULAR RHYTHM, +S1, +S2 - GI/Abdominal Exam GI & Abdominal Exam: Normal Bowel Sounds - Neurological Exam Neurological exam: Alert, Oriented x3 - Psychiatric Exam Psychiatric exam: Normal Affect - Skin Skin Exam: Normal Color, Warm Discharge Plan - Discharge Medications Prescriptions: Acetaminophen/Butalbital/Caf [Fioricet] 1 tab PO Q4H PRN #12 tab PRN Reason: Headache amLODIPine [Norvasc] 5 mg PO DAILY 30 Days #30 tab Metoprolol Succinate [Toprol XL] 50 mg PO DAILY #30 tab - Follow Up Plan Condition: FAIR Disposition: HOME/ ROUTINE Instructions: Chest Pain (DC), Heart Healthy Diet (DC), Hypertensive Crisis (DC ) Additional Instructions: Please continue home medications as indicated. Start Norvasc 5mg a day. Superior follow up with PMD and keep log of blood pressure. You may also take fioricet for migraine, 1 tablet every 4 hours but not more than 6 in a day. If blood pressure is extremely elevated please come back to the ED, as well as if any other symptoms return. <Alberto Peters - Last Filed: 02/03/17 16:37> Provider - Provider Date of Admission: 02/02/17 13:31 Attending physician: Alberto Peters MD Hospital Course - Lab Results Lab Results: Most Recent Lab Values WBC 4.6 10^3/ul (4.5-11.0) 02/03/17 05:10 RBC 3.96 10^6/uL (3.5-6.1) 02/03/17 05:10 Hgb 12.2 g/dL (12.0-16.0) 02/03/17 05:10 Hct 36.4 % (36.0-48.0) 02/03/17 05:10 MCV 91.9 fl (80.0-105.0) 02/03/17 05:10 MCH 30.8 pg (25.0-35.0) 02/03/17 05:10 MCHC 33.5 g/dl (31.0-37.0) 02/03/17 05:10 RDW 13.0 % (11.5-14.5) 02/03/17 05:10 Plt Count 399 10^3/uL (120.0-450.0) 02/03/17 05:10 MPV 9.1 fl (7.0-11.0) 02/03/17 05:10 Gran % 41.4 % (50.0-68.0) L 02/03/17 05:10 Lymph % (Auto) 47.5 % (22.0-35.0) H 02/03/17 05:10 [place] % (Auto) 7.8 % (1.0-6.0) H 02/03/17 05:10 Eos % (Auto) 2.4 % (1.5-5.0) 02/03/17 05:10 Baso % (Auto) 0.9 % (0.0-3.0) 02/03/17 05:10 Gran # 1.90 (1.4-6.5) 02/03/17 05:10 Lymph # 2.2 (1.2-3.4) 02/03/17 05:10 [place] # 0.4 (0.1-0.6) 02/03/17 05:10 Eos # 0.1 (0.0-0.7) 02/03/17 05:10 Baso # 0.04 K/mm3 (0.0-2.0) 02/03/17 05:10 PT 12.5 SECONDS (9.4-12.5) 02/02/17 04:20 INR 1.14 (0.93-1.08) H 02/02/17 04:20 APTT 29.7 Seconds (25.1-36.5) 02/02/17 04:20 Sodium 140 mmol/L (132-148) 02/03/17 05:10 Potassium 3.8 mmol/L (3.6-5.0) 02/03/17 05:10 Chloride 103 mmol/L (98-107) 02/03/17 05:10 Carbon Dioxide 27 mmol/L (21-33) 02/03/17 05:10 Anion Gap 14 (10-20) 02/03/17 05:10 BUN 12 mg/dL (7-21) 02/03/17 05:10 Creatinine 0.9 mg/dL (0.7-1.2) 02/03/17 05:10 Est GFR ( Amer) > 60 02/03/17 05:10 Est GFR (Non-Af Amer) > 60 02/03/17 05:10 Random Glucose 93 mg/dL (70-110) 02/03/17 05:10 Calcium 9.8 mg/dL (8.4-10.5) 02/03/17 05:10 Magnesium 1.9 mg/dL (1.7-2.2) 02/02/17 04:20 Total Bilirubin 0.6 mg/dL (0.2-1.3) 02/03/17 05:10 Direct Bilirubin 0.5 mg/dL (0.0-0.4) H 02/01/17 12:15 AST 24 U/L (14-36) 02/03/17 05:10 ALT 25 U/L (7-56) 02/03/17 05:10 Alkaline Phosphatase 47 U/L (38-126) 02/03/17 05:10 Lactate Dehydrogenase 313 U/L (333-699) L 02/02/17 11:45 Total Creatine Kinase 70 U/L (35-230) 02/02/17 11:45 Troponin I < 0.01 ng/mL 02/02/17 11:45 NT-Pro-B Natriuret Pep 283 pg/mL (0-450) 02/01/17 12:15 Total Protein 7.9 g/dL (5.8-8.3) 02/03/17 05:10 Albumin 4.4 g/dL (3.0-4.8) 02/03/17 05:10 Globulin 3.4 gm/dL 02/03/17 05:10 Albumin/Globulin Ratio 1.3 (1.1-1.8) 02/03/17 05:10 Triglycerides 176 mg/dL (35-160) H 02/01/17 21:00 Cholesterol 155 mg/dL (130-200) 02/01/17 21:00 LDL Cholesterol Direct 89 mg/dL (0-129) 02/01/17 21:00 HDL Cholesterol 37 mg/dL (29-60) 02/01/17 21:00 Lipase 39 U/L (23-300) 02/01/17 12:15 Free T4 0.81 ng/dL (0.78-2.19) 02/02/17 11:45 TSH 3rd Generation 4.94 mIU/mL (0.46-4.68) H 02/02/17 11:45 Urine Color Yellow (YELLOW) 02/01/17 13:20 Urine Appearance Clear (CLEAR) 02/01/17 13:20 Urine pH 6.0 (4.7-8.0) 02/01/17 13:20 Ur Specific [place] 1.020 (1.005-1.035) 02/01/17 13:20 Urine Protein Negative mg/dL (<30 mg/dL) 02/01/17 13:20 Urine Glucose (UA) Negative mg/dL (NEGATIVE) 02/01/17 13:20 Urine Ketones Negative mg/dL (NEGATIVE) 02/01/17 13:20 Urine Blood Negative (NEGATIVE) 02/01/17 13:20 Urine Nitrate Negative (NEGATIVE) 02/01/17 13:20 Urine Bilirubin Negative (NEGATIVE) 02/01/17 13:20 Urine Urobilinogen 0.2 E.U./dL (<1 E.U./dL) 02/01/17 13:20 Ur Leukocyte Esterase Trace [place]/uL (NEGATIVE) H 02/01/17 13:20 Urine RBC 0 - 2 /hpf (0-2) 02/01/17 13:20 Urine WBC 1 - 3 /hpf (0-6) 02/01/17 13:20 Ur Epithelial Cells 4 - 5 /hpf (0-5) 02/01/17 13:20 Urine Bacteria Few (NEG) 02/01/17 13:20 Urine Opiates Screen Negative (NEGATIVE) 02/02/17 02:00 Urine Methadone Screen Negative (NEGATIVE) 02/02/17 02:00 Ur Barbiturates Screen Negative (NEGATIVE) 02/02/17 02:00 Ur Phencyclidine Scrn Negative (NEGATIVE) 02/02/17 02:00 Ur Amphetamines Screen Negative (NEGATIVE) 02/02/17 02:00 U Benzodiazepines Scrn Negative (NEGATIVE) 02/02/17 02:00 U Oth Cocaine Metabols Negative (NEGATIVE) 02/02/17 02:00 U Cannabinoids Screen Positive (NEGATIVE) H 02/02/17 02:00 Influenza Typ A,B (EIA) Negative for flu a/b (NEGATIVE) 02/01/17 18:43 Attending/Attestation - Attestation I have personally seen and examined this patient.: Yes I have fully participated in the care of the patient.: Yes I have reviewed all pertinent clinical information, including history, physical exam and plan: Yes Notes (Text): I have seen and examined the patient at bedside. 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 Chest pain, abdominal pain and headache has resolved BP was improved. Norvasc was added. CE q8 x 3 negative. Echo result pending. Cardiology consult pending. MRI brain noted. Discussed with neurology team. MRI findings are non specific. Continue fioricet prn. Denies homicidal or suicidal ideation. Patient will follow up with Dr Saini. Dr Alberto Peters
[2017-02-03 14:51] VITALS: PULSE 61
== END 2017-02-03 17:00 | disposition home or self-care (01) | DRG 134 ==
LOC: ED 11:59 → ERH 15:32 → 2RSO 17:04 → OBSVTOIN 02-02 13:31
PROVIDERS: ADMIT Internal Medicine; ATTEND Hospitalist
DX: I10 Essential (primary) hypertension (principal); R07.89 Other chest pain; G43.909 Migraine, unspecified, not intractable, without status migrainosus; E78.5 Hyperlipidemia, unspecified; F17.200 Nicotine dependence, unspecified, uncomplicated; F12.10 Cannabis abuse, uncomplicated; R10.32 Left lower quadrant pain; R10.31 Right lower quadrant pain

== ENCOUNTER 2017-09-07 10:01 | Emergency (ER) | payer MEDICAID ==
[2017-09-07 10:01] VITALS: BMI 25.7
[2017-09-07] MEDS ORDERED: Sodium Chloride 0.9% 1,000 ML IV STA (11:04)
[2017-09-07 11:21] VITALS: RESP 18; TEMP 98.8; O2SAT 100
[2017-09-07 11:42] LABS: BASO # 0.03 K/mm3 (0.0-2.0); BASO % 0.5 % (0.0-3.0); EOS # 0.1 (0.0-0.7); EOS % 1.3 % (1.5-5.0); GRAN # 3.28 (1.4-6.5); GRAN % 58.8 % (50.0-68.0); HEMOGLOBIN 11.6 g/dL (12.0-16.0); LYMPH # 1.9 (1.2-3.4); LYMPH % 33.8 % (22.0-35.0); MEAN CELL VOLUME 91.6 fl (80.0-105.0); MEAN CORPUSCULAR HEMOGLOBIN 31.5 pg (25.0-35.0); MEAN CORPUSCULAR HGB CONC 34.4 g/dl (31.0-37.0); MEAN PLATELET VOLUME 8.4 fl (7.0-11.0); MONO # 0.3 (0.1-0.6); MONO % 5.6 % (1.0-6.0); RBC 3.68 10^6/uL (3.5-6.1); RED CELL DISTRIBUTION WIDTH 12.8 % (11.5-14.5); WHITE BLOOD COUNT 5.6 10^3/ul (4.5-11.0)
[2017-09-07 11:47] LABS: URINE BILIRUBIN NEGATIVE (NEGATIVE); URINE BLOOD NEGATIVE (NEGATIVE); URINE GLUCOSE (UA) NEGATIVE (NEGATIVE); URINE LEUKOCYTE ESTERASE NEGATIVE Leu/uL (NEGATIVE); URINE PROTEIN NEGATIVE mg/dL (<30 mg/dL); URINE UROBILINOGEN 0.2 E.U./dL (<1 E.U./dL)
--- NOTE | 2017-09-07 11:49 | ED PDOC ---
Arrival/HPI - General Chief Complaint: Female Genitourinary Time Seen by Provider: 09/07/17 11:04 Historian: Patient - History of Present Illness Narrative History of Present Illness (Text): 09/07/17 11:10 Flor Oneill is a 47 year old female, whose past medical history includes a partial hysterectomy, cholecystectomy, and hypertension, who presents to the emergency department complaining of right sided lower abdominal pain that radiates to her back for a few months. Patient experiences associated vomiting, diarrhea x 2 weeks. Patient states that pain worsens when laying down and is now intolerable, prompting her to come to the emergency department for evaluation. Patient denies any hematuria, fevers, chlls, or any other complaints at this time. Time/Duration: Other (A few months) Symptom Onset: Gradual Symptom Course: Worsening Activities at Onset: Light Context: Work Past Medical History - Provider Review Nursing Documentation Reviewed: Yes - Infectious Disease Hx of Infectious Diseases: None - Cardiac Hx Cardiac Disorders: Yes Hx Hypertension: Yes - Pulmonary Hx Respiratory Disorders: No - Neurological Hx Migraine: Yes - HEENT Hx HEENT Disorder: No - Renal Hx Renal Disorder: No - Endocrine/Metabolic Hx Endocrine Disorders: No - Hematological/Oncological Hx Blood Disorders: No - Integumentary Hx Dermatological Disorder: No - Musculoskeletal/Rheumatological Hx Musculoskeletal Disorders: No - Gastrointestinal Hx Gastrointestinal Disorders: No - Genitourinary/Gynecological Hx Genitourinary Disorders: No - Psychiatric Hx Psychophysiologic Disorder: No Hx Substance Use: No - Surgical History Hx Breast Biopsy: Yes Hx Cholecystectomy: Yes Hx Hysterectomy: Yes (partial) - Anesthesia Hx Anesthesia: Yes Hx Anesthesia Reactions: No Family/Social History - Physician Review Nursing Documentation Reviewed: Yes Family/Social History: No Known Family HX Smoking Status: Light Smoker < 10 Cigarettes Daily Hx Alcohol Use: No Hx Substance Use: No Allergies/Home Meds Allergies/Adverse Reactions: Allergies No Known Allergies Allergy (Verified 09/07/17 10:45) Home Medications: Home Meds Medication Instructions Recorded Confirmed Valsartan [Diovan] 1 tab PO DAILY 04/15/17 09/07/17 Review of Systems - Physician Review All systems were reviewed & negative as marked: Yes - Review of Systems Constitutional: absent: Fevers, Night Sweats Eyes: absent: Vision Changes ENT: absent: Hearing Changes Respiratory: absent: SOB Cardiovascular: absent: Chest Pain Gastrointestinal: Abdominal Pain Genitourinary Female: absent: Dysuria Musculoskeletal: Back Pain Skin: absent: Rash Neurological: absent: Headache Endocrine: absent: Diaphoresis Hemo/Lymphatic: absent: Adenopathy Psychiatric: absent: Anxiety, Depression Physical Exam - Physical Exam Narrative Physical Exam (Text): Constitutional: No acute distress. Head: Normocephalic. Atraumatic. Eyes: PERRL. ENT: Moist mucous membranes. Neck: Supple. Cardiovascular: Regular rate. Chest: No tenderness. Respiratory: Clear to auscultation bilaterally. GI: Soft. Nontender. Nondistended. Back: Right Lumbar Tenderness. No Midline tenderness. Musculoskeletal: No tenderness or swelling of extremities. Skin: No rash. Neurologic: Alert, no focal deficit. Vital Signs Reviewed: Yes Vital Signs Temp Pulse Resp BP Pulse Ox 09/07/17 12:48 82 18 130/84 100 09/07/17 10:45 98.8 F 88 18 129/88 100 Temperature: Afebrile Blood Pressure: Normal Pulse: Regular Respiratory Rate: Normal Appearance: Positive for: Well-Appearing, Non-Toxic, Comfortable Pain Distress: None Mental Status: Positive for: Alert and Oriented X 3 Medical Decision Making ED Course and Treatment: 09/07/17 11:10 Impression: 47 year old female complaining of right sided abdominal pain that radiates to her back for a few months Plan: -- Transvaginal US -- Urine Culture and Urinalysis -- Labs -- Toradol, Zofran, and IV Fluids -- Reassess and disposition Prior Visits: Notes and results from previous visits were reviewed. Patient was last seen in the emergency department on 04/15/17 for L ear feeling clogged. Patient was discharged home. Progress Notes: 09/07/17 12:18 Transvaginal US: Creator : Levi Mccoy MD FINDINGS: UTERUS:Status post hysterectomy ENDOMETRIUM:Status post hysterectomy CERVIX:Status post hysterectomy RIGHT OVARY: Measures 3.4 x 1.1 x 3.4 cm. No solid mass. Normal flow. Complex cyst with thick wall measures 0.9 x 1.4 x 1.7 cm. The cyst is somewhat pedunculated. Followup is advised with transvaginal pelvic ultrasound in approximately 2 months. LEFT OVARY: Measures 2.9 x 1.5 x 2.6 cm. No solid mass. Normal flow. FREE FLUID:No significant free fluid noted. OTHER FINDINGS:None. IMPRESSION: Status post hysterectomy. Complex right ovarian cyst, 1.7 cm. Recommend followup transvaginal pelvic ultrasound in 2 months. Otherwise unremarkable. Unremarkable pelvic ultrasound. Patient discharged, f/u OBGYN, return to ED for worsening pain, fever, vomiting , dyspnea. - Lab Interpretations Lab Results: 09/07/17 11:34 09/07/17 11:34 Lab Results 09/07/17 11:34: Sodium 143, Potassium 4.3, Chloride 106, Carbon Dioxide 25, Anion Gap 16, BUN 13, Creatinine 0.9, Est GFR ( Amer) > 60, Est GFR (Non- Af Amer) > 60, Random Glucose 92, Calcium 9.8, Total Bilirubin 0.6, AST 27, ALT 29, Alkaline Phosphatase 53, Total Protein 8.4 H, Albumin 4.8, Globulin 3.6, Albumin/Globulin Ratio 1.3, Lipase 42 09/07/17 11:34: WBC 5.6, RBC 3.68, Hgb 11.6 L D, Hct 33.7 L, MCV 91.6, MCH 31.5 , MCHC 34.4, RDW 12.8, Plt Count 376, MPV 8.4, Gran % 58.8, Lymph % (Auto) 33.8 , [place] % (Auto) 5.6, Eos % (Auto) 1.3 L, Baso % (Auto) 0.5, Gran # 3.28, Lymph # (Auto) 1.9, [place] # (Auto) 0.3, Eos # (Auto) 0.1, Baso # (Auto) 0.03 09/07/17 11:01: Urine Color Yellow, Urine Appearance Clear, Urine pH 6.0, Ur Specific [place] 1.020, Urine Protein Negative, Urine Glucose (UA) Negative, Urine Ketones Negative, Urine Blood Negative, Urine Nitrate Negative, Urine Bilirubin Negative, Urine Urobilinogen 0.2, Ur Leukocyte Esterase Negative, Urine HCG, Qual Negative I have reviewed the lab results: Yes - RAD Interpretation Radiology Orders: 09/07/17 11:05 TRANSVAGINAL [US] Stat - Medication Orders Current Medication Orders: Discontinued Medications Sodium Chloride (Sodium Chloride 0.9%) 1,000 mls @ 999 mls/hr IV .Q1H1M STA Stop: 05/31/18 12:04 Last Admin: 09/07/17 11:47 Dose: 999 mls/hr eMAR Start Stop Document 09/07/17 11:47 SF (Rec: 09/07/17 11:47 SF [id number]) Intravenous Solution Start Date 09/07/17 Start Time 11:47 End Date 09/07/17 End time 12:48 Total Infusion Time 61 Ketorolac Tromethamine (Toradol) 30 mg IVP STAT STA Stop: 09/07/17 11:05 Last Admin: 09/07/17 11:47 Dose: 30 mg MAR Pain Assessment Document 09/07/17 11:47 SF (Rec: 09/07/17 11:48 SF [id number]) Pain Reassessment Is this a pain reassessment? Yes Sleep Is patient sleeping during reassessment? No Presence of Pain Presence of Pain Yes Pain Scale Used Pain Scale Used Numeric IVP Administration Document 09/07/17 11:47 SF (Rec: 09/07/17 11:48 SF [id number]) Charges for Administration # of IVP Administrations 1 Ondansetron HCl (Zofran Inj) 8 mg IVP STAT STA Stop: 09/07/17 11:05 Last Admin: 09/07/17 11:47 Dose: 8 mg IVP Administration Document 09/07/17 11:47 SF (Rec: 09/07/17 11:47 SF [id number]) Charges for Administration # of IVP Administrations 1 - Scribe Statement The provider has reviewed the documentation as recorded by the Jayna Hoskins Provider Scribe Attestation: All medical record entries made by the Scribe were at my direction and personally dictated by me. I have reviewed the chart and agree that the record accurately reflects my personal performance of the history, physical exam, medical decision making, and the department course for this patient. I have also personally directed, reviewed, and agree with the discharge instructions and disposition. Disposition/Present on Arrival - Present on Arrival Any Indicators Present on Arrival: No History of DVT/PE: No History of Uncontrolled Diabetes: No Urinary Catheter: No History of Decub. Ulcer: No History Surgical Site Infection Following: None - Disposition Have Diagnosis and Disposition been Completed?: Yes Diagnosis: Right ovarian cyst Disposition: HOME/ ROUTINE Disposition Time: 12:14 Patient Plan: Discharge Condition: STABLE Discharge Instructions (ExitCare): Ovarian Cysts Prescriptions: Naproxen 500 mg PO Q12H #14 tablet Referrals: Piero Watts MD [Staff Provider] - Follow up with primary Forms: [email or web address] (Hungarian)
[2017-09-07 11:51] LABS: ALB/GLOB RATIO 1.3 (1.1-1.8); ALBUMIN 4.8 g/dL (3.0-4.8); ALT/SGPT 29 U/L (7-56); AST/SGOT 27 U/L (14-36); BLOOD UREA NITROGEN 13 mg/dL (7-21); CALCIUM 9.8 mg/dL (8.4-10.5); GFR AFRICAN-AMERICAN > 60; GFR NON-AFRICAN AMERICAN > 60; LIPASE 42 U/L (23-300)
[2017-09-07 11:54] LABS: URINE APPEARANCE CLEAR (CLEAR); URINE COLOR YELLOW (YELLOW)
[2017-09-07 11:56] LABS: HCG,QUALITATIVE URINE NEGATIVE (NEGATIVE)
--- NOTE | 2017-09-07 12:15 | US ---
HISTORY: R pelvic pain, r/o cyst vs torsion COMPARISON: None available. TECHNIQUE: Transabdominal and transvaginal FINDINGS: UTERUS: Status post hysterectomy ENDOMETRIUM: Status post hysterectomy CERVIX: Status post hysterectomy RIGHT OVARY: Measures 3.4 x 1.1 x 3.4 cm. No solid mass. Normal flow. Complex cyst with thick wall measures 0.9 x 1.4 x 1.7 cm. The cyst is somewhat pedunculated. Followup is advised with transvaginal pelvic ultrasound in approximately 2 months. LEFT OVARY: Measures 2.9 x 1.5 x 2.6 cm. No solid mass. Normal flow. FREE FLUID: No significant free fluid noted. OTHER FINDINGS: None. IMPRESSION: Status post hysterectomy. Complex right ovarian cyst, 1.7 cm. Recommend followup transvaginal pelvic ultrasound in 2 months. Otherwise unremarkable. Unremarkable pelvic ultrasound.
[2017-09-07 12:49] VITALS: BP 130/84; PULSE 82
== END 2017-09-07 12:48 | disposition home or self-care (01) ==
LOC: ED 10:01
DX: N83.201 Unspecified ovarian cyst, right side (principal); I10 Essential (primary) hypertension; Z90.710 Acquired absence of both cervix and uterus; Z90.49 Acquired absence of other specified parts of digestive tract; F17.210 Nicotine dependence, cigarettes, uncomplicated
CPT/HCPCS: 76830; 80053; 81003; 83690; 84703; 85025; 87086; 96361; 96374; 96375; 99284; J1885; J2405; J7030

== ENCOUNTER 2018-05-01 10:57 | Emergency (ER) | payer OTHER, MEDICAID ==
[2018-05-01 11:14] VITALS: RESP 18; TEMP 98.6
[2018-05-01 11:20] VITALS: BMI 26.3
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
[2018-05-01] MEDS ORDERED: Lidocaine 5% Patch TD STA (13:04)
[2018-05-01 13:36] VITALS: BP 153/89; PULSE 69; O2SAT 98
== END 2018-05-01 13:51 | disposition home or self-care (01) ==
LOC: ED 10:57
DX: M54.6 Pain in thoracic spine (principal); M54.5 Low back pain; M25.561 Pain in right knee; V78.6XXA Passenger on bus injured in noncollision transport accident in traffic accident, initial encounter; Y92.410 Unspecified street and highway as the place of occurrence of the external cause
CPT/HCPCS: 72070; 72110; 73560; 96372; 99284; J1885

== ENCOUNTER 2018-08-05 16:44 | Emergency (ER) | payer MEDICAID, OTHER ==
[2018-08-05 16:44] VITALS: BMI 26.3
[2018-08-05 17:06] VITALS: TEMP 98.4
[2018-08-05] MEDS ORDERED: Sodium Chloride 0.9% 500 ML IV STA (17:43)
[2018-08-05 18:18] LABS: BASO # 0.02 K/mm3 (0.0-2.0); BASO % 0.3 % (0.0-3.0); EOS # 0.2 (0.0-0.7); EOS % 2.5 % (1.5-5.0); HEMOGLOBIN 12.5 g/dL (12.0-16.0); LYMPH # 1.9 (1.2-3.4); LYMPH % 30.7 % (22.0-35.0); MEAN CELL VOLUME 93.1 fl (80.0-105.0); MEAN CORPUSCULAR HEMOGLOBIN 31.9 pg (25.0-35.0); MEAN CORPUSCULAR HGB CONC 34.2 g/dl (31.0-37.0); MEAN PLATELET VOLUME 8.3 fl (7.0-11.0); MONO # 0.5 (0.1-0.6); MONO % 8.6 % (1.0-6.0); RBC 3.92 10^6/uL (3.5-6.1); WHITE BLOOD COUNT 6.1 10^3/uL (4.5-11.0)
[2018-08-05 18:26] LABS: ALB/GLOB RATIO 1.2 (1.1-1.8); ALBUMIN 4.9 g/dL (3.0-4.8); BLOOD UREA NITROGEN 15 mg/dL (7-21); CALCIUM 9.6 mg/dL (8.4-10.5); GFR NON-AFRICAN AMERICAN > 60; INR 1.06; PARTIAL THROMBOPLASTIN TIME 30.4 Seconds (26.9-38.3); PROTHROMBIN TIME 11.8 SECONDS (9.4-12.5)
[2018-08-05 18:31] LABS: ALT/SGPT 22 U/L (7-56); AST/SGOT 38 U/L (14-36)
[2018-08-05] MEDS ORDERED: Iohexol 350 MG/100 ML VIAL ONE (18:40)
[2018-08-05 18:57] VITALS: BP 132/71; PULSE 75; RESP 18; O2SAT 98
[2018-08-05 19:10] LABS: URINE BILIRUBIN NEGATIVE (NEGATIVE); URINE BLOOD NEGATIVE (NEGATIVE); URINE GLUCOSE (UA) NEGATIVE (NEGATIVE); URINE LEUKOCYTE ESTERASE NEGATIVE Leu/uL (NEGATIVE); URINE PROTEIN NEGATIVE mg/dL (<30 mg/dL); URINE UROBILINOGEN 0.2 E.U./dL (<1 E.U./dL)
[2018-08-05 19:11] LABS: URINE APPEARANCE CLEAR (CLEAR); URINE COLOR LIGHT YELLOW (YELLOW)
--- NOTE | 2018-08-05 19:14 | ED PDOC ---
Arrival/HPI - General Chief Complaint: GI Problem Time Seen by Provider: 08/05/18 17:08 Historian: Patient - History of Present Illness Narrative History of Present Illness (Text): 08/05/18 18:46 48-year-old female presents today with concerns for rectal bleeding. Patient states for the past 3 days she has had bright red blood per rectum only with bowel movements. Patient is complaining of some left-sided abdominal pain desc ribed as a crampy achy sensation. No urinary symptoms. No chest pain or shortness of breath. Patient states today she started to feel a little dizzy which made her be concerned about the rectal bleeding. Patient states she has a history of hypertension but states she has never seen a GI doctor had a colonoscopy in the past. Patient states she had a partial hysterectomy 13 years ago. No other complaints Past Medical History - Provider Review Nursing Documentation Reviewed: Yes - Travel History Have you recently traveled outside [place] w/in the past 3 mons?: No - Infectious Disease Hx of Infectious Diseases: None - Reproductive Menopause: No - Cardiac Hx Hypertension: Yes - Pulmonary Hx Respiratory Disorders: No - Neurological Hx Migraine: Yes - HEENT Hx HEENT Disorder: No - Renal Hx Renal Disorder: No - Endocrine/Metabolic Hx Endocrine Disorders: No - Hematological/Oncological Hx Blood Disorders: No - Integumentary Hx Dermatological Disorder: No - Musculoskeletal/Rheumatological Hx Musculoskeletal Disorders: No - Gastrointestinal Hx Gastrointestinal Disorders: No - Genitourinary/Gynecological Hx Genitourinary Disorders: No - Psychiatric Hx Psychophysiologic Disorder: No Hx Substance Use: No - Surgical History Hx Cholecystectomy: Yes Hx Hysterectomy: Yes (partial) - Anesthesia Hx Anesthesia: Yes Hx Anesthesia Reactions: No Hx Malignant Hyperthermia: No Family/Social History - Physician Review Nursing Documentation Reviewed: Yes Family/Social History: Unknown Family HX Smoking Status: Light Smoker < 10 Cigarettes Daily Hx Alcohol Use: No Hx Substance Use: No Allergies/Home Meds Allergies/Adverse Reactions: Allergies No Known Allergies Allergy (Verified 08/05/18 17:06) Review of Systems - Review of Systems Constitutional: absent: Fatigue, Fevers Respiratory: absent: SOB, Cough Cardiovascular: absent: Chest Pain, Palpitations Gastrointestinal: Abdominal Pain, Hematochezia. absent: Constipation, Diarrhea, Nausea, Vomiting, Appetite Changes, Hematemesis, Anorexia Genitourinary Female: absent: Dysuria, Frequency, Hematuria Musculoskeletal: absent: Arthralgias, Back Pain, Neck Pain Skin: absent: Rash, Pruritis Neurological: absent: Headache Psychiatric: absent: Anxiety, Depression, Suicidal Ideation Physical Exam Vital Signs Reviewed: Yes Vital Signs Temp Pulse Resp BP Pulse Ox 08/05/18 17:00 98.4 F 88 19 137/89 100 Temperature: Afebrile Blood Pressure: Normal Pulse: Regular Respiratory Rate: Normal Appearance: Positive for: Well-Appearing, Non-Toxic, Comfortable Pain Distress: None Mental Status: Positive for: Alert and Oriented X 3 - Systems Exam Head: Present: Atraumatic Mouth: Present: Moist Mucous Membranes Neck: Present: Normal Range of Motion Respiratory/Chest: Present: Clear to Auscultation, Good Air Exchange. No: Respiratory Distress, Accessory Muscle Use Cardiovascular: Present: Regular Rate and Rhythm, Normal S1, S2. No: Murmurs Abdomen: Present: Tenderness (+ minimal left sided abdominal tenderness). No: Distention, Peritoneal Signs, Rebound, Guarding Rectal: Present: Normal Rectal Tone. No: Occult Blood, Rectal Tenderness, Gross Blood, Melena, Hemorrhoids, Fissures Back: Present: Normal Inspection. No: CVA Tenderness, Midline Tenderness, Paraspinal Tenderness Upper Extremity: Present: Normal ROM Lower Extremity: Present: Normal ROM Neurological: Present: GCS=15, Speech Normal Skin: Present: Warm, Dry, Normal Color. No: Rashes Psychiatric: Present: Alert, Oriented x 3 Medical Decision Making ED Course and Treatment: 08/05/18 18:48 Patient is nontoxic well appearing with stable vital signs presenting with left sided abdominal pain and bright red blood per rectum for 3 days only during bowel movements. pt with heme negative light brown stool. CBC: wnl CMP: wnl pt/inr; wnl Urinalysis: WNL CAT scan: FINDINGS: LUNG BASES: The lung bases appear clear. No pleural effusions are seen. LIVER: Unremarkable. GALLBLADDER AND BILE DUCTS: Gallbladder has been surgically removed. PANCREAS: Unremarkable. SPLEEN: Unremarkable. ADRENAL GLANDS: Unremarkable. KIDNEYS, URETERS, AND BLADDER: The kidneys appear within normal limits. There is no hydronephrosis or hydroureter. No urinary calculi are seen. STOMACH AND BOWEL: Unremarkable appearance of the stomach and bowel. No evidence of bowel obstruction. No evidence suggesting enteritis or colitis. Mild diverticular changes and minimal wall thickening of the sigmoid and distal descending colon suspected without diverticular abscess or mass. APPENDIX: No evidence of acute appendicitis on CT examination. PERITONEUM: No free fluid. No free air. LYMPH NODES: No lymphadenopathy is evident. REPRODUCTIVE: There appears to be air within the endometrial cavity with an irregular appearance to the endometrial cavity. VASCULATURE: No evidence of abdominal aortic aneurysm. BONES: No aggressive appearing osseous lesion. No acute osseous pathology evident. IMPRESSION: No suspicious mass or lymphadenopathy. Status post cholecystectomy. Mild diverticular changes and minimal wall thickening of the sigmoid distal descending colon. Air within the endometrial cavity with an irregular appearance to the endometrial cavity for which clinical correlation and ultrasound study of the pelvis recommended. Electronically signed on Aug 05, 2018 7:02:20 PM EDT by: Mike Zhang M.D., Certified by [facility], Diagnostic Radiology Patient reassessment: pt is non toxic well appearing; no distress. stable alicia ls. HGB wnl, heme negative brown stools, negative Ct, vitals stable. will d/c home to f/u with GI doctor within the next 2 days. Discussed all results with patient in depth. advised patient of need for f/u with GI specialist within the next 2 days and advised immediate return if symptoms worsen,persist or if new symptoms develop. Impression: Abdominal pain, rectal bleeding. Follow up with the GI doctor within the next 2 days. Follow up with primary care physician within the next 2 days increase fluids. Return immediately if symptoms worsen persist or if new symptoms develop: High fevers, increasing pain, vomiting, diarrhea or any other concerning symptoms develop - Lab Interpretations Lab Results: PT 11.8 SECONDS (9.4-12.5) 08/05/18 18:10 INR 1.06 08/05/18 18:10 APTT 30.4 Seconds (26.9-38.3) 08/05/18 18:10 Total Bilirubin 0.5 mg/dL (0.2-1.3) 08/05/18 18:10 AST 38 U/L (14-36) H D 08/05/18 18:10 ALT 22 U/L (7-56) 08/05/18 18:10 Alkaline Phosphatase 61 U/L (38-126) 08/05/18 18:10 Total Protein 9.1 g/dL (5.8-8.3) H 08/05/18 18:10 Albumin 4.9 g/dL (3.0-4.8) H 08/05/18 18:10 Globulin 4.2 gm/dL 08/05/18 18:10 Albumin/Globulin Ratio 1.2 (1.1-1.8) 08/05/18 18:10 - RAD Interpretation Radiology Orders: 08/05/18 17:43 ABD & PELVIS IV CONTRAST ONLY [CT] Stat - Medication Orders Current Medication Orders: Discontinued Medications Sodium Chloride (Sodium Chloride 0.9%) 500 mls @ 999 mls/hr IV .Q31M STA Stop: 08/05/18 18:13 Last Admin: 08/05/18 18:31 Dose: 999 mls/hr eMAR Start Stop Document 08/05/18 18:31 KERA (Rec: 08/05/18 18:31 KERA [id number]) Intravenous Solution Start Date 08/05/18 Start Time 18:15 End Date 08/05/18 End time 18:45 Total Infusion Time 30 Disposition/Present on Arrival - Present on Arrival Any Indicators Present on Arrival: No History of DVT/PE: No History of Uncontrolled Diabetes: No Urinary Catheter: No History of Decub. Ulcer: No History Surgical Site Infection Following: None - Disposition Have Diagnosis and Disposition been Completed?: Yes Diagnosis: Abdominal pain, Rectal bleeding Disposition: HOME/ ROUTINE Disposition Time: 19:15 Patient Plan: Discharge Patient Problems: Current Active Problems Problem Status Onset Abdominal pain Acute Rectal bleeding Acute Condition: GOOD Discharge Instructions (ExitCare): Acute Abdomen (Belly Pain), Adult (DC), Bloody Stools, Adult (DC) Additional Instructions: Follow up with the GI doctor within the next 2 days. Follow up with primary care physician within the next 2 days increase fluids. Return immediately if symptoms worsen persist or if new symptoms develop: High fevers, increasing pain, vomiting, diarrhea or any other concerning symptoms develop Referrals: Al Buchanan DO [Staff Provider] - Follow up with primary Radha Hollis MD [Medical Doctor] - Follow up with primary [facility] [Outside] - Follow up with primary Forms: [employer] (Citizen Of [place]), WORK NOTE
--- NOTE | 2018-08-06 09:57 | CT ---
Date of service: 08/05/2018 PROCEDURE: CT Abdomen and Pelvis with contrast HISTORY: left sided abd pain, rectal bleeding COMPARISON: None. TECHNIQUE: Contrast dose: 100 mL Omnipaque 350 Radiation dose: Total exam DLP = 347.24 mGy-cm. This CT exam was performed using one or more of the following dose reduction techniques: Automated exposure control, adjustment of the mA and/or kV according to patient size, and/or use of iterative reconstruction technique. FINDINGS: LOWER THORAX: Unremarkable. LIVER: Unremarkable. No gross lesion or ductal dilatation. GALLBLADDER AND BILE DUCTS: Unremarkable. PANCREAS: Unremarkable. No gross lesion or ductal dilatation. SPLEEN: Unremarkable. ADRENALS: Unremarkable. No mass. KIDNEYS AND URETERS: Unremarkable. No hydronephrosis. No solid mass. VASCULATURE: Unremarkable. No aortic aneurysm. No aortic atherosclerotic calcification or mural plaque present. BOWEL: There is mild circumferential mural thickening of the rectosigmoid colon common nonspecific. Consider proctitis/colitis, infectious or inflammatory. No bowel obstruction. No other abnormal bowel loops. APPENDIX: Normal appendix. PERITONEUM: Unremarkable. No free fluid. No free air. LYMPH NODES: Unremarkable. No enlarged lymph nodes. BLADDER: Unremarkable. REPRODUCTIVE: Status post hysterectomy 1.8 cm left ovarian cyst, presumed physiologic. BONES: No acute fracture. OTHER FINDINGS: None. IMPRESSION: Status post hysterectomy. Circumferential mural thickening of the rectosigmoid colon. Consider infectious or inflammatory colitis. No other significant abnormality. The preliminary findings for this examination were reported by [facility] at 7:02 p.m. on 08/05/2018.. There is discordance of this report with the preliminary findings. Findings of mural thickening of the rectosigmoid colon were not described in the preliminary report of this examination.
== END 2018-08-05 19:33 | disposition home or self-care (01) ==
LOC: ED 16:44
DX: K62.5 Hemorrhage of anus and rectum (principal); R10.9 Unspecified abdominal pain; I10 Essential (primary) hypertension; Z90.49 Acquired absence of other specified parts of digestive tract; Z90.710 Acquired absence of both cervix and uterus; F17.210 Nicotine dependence, cigarettes, uncomplicated
CPT/HCPCS: 74177; 80053; 81003; 85025; 85610; 85730; 86850; 86900; 99283; J7040; Q9967